=== PATIENT | female | born 1975 | race American Indian/Alaskan Native ===

== ENCOUNTER 2018-02-21 19:34 | Emergency (ER) | payer SELFPAY ==
[2018-02-21 22:48] VITALS: BP 155/97
[2018-02-22] MEDS ORDERED: TYLENOL #3 PO ONE (00:18)
--- NOTE | 2018-02-22 02:38 | Emergency Department Report ---
[place] [facility] Chief Complaint: Wound/Laceration Stated Complaint: LEFT HAND LACERATION Time Seen by Provider: 02/22/18 02:31 Occurred When: Today Location: Upper Extremity Severity: mild Tetanus Status: Up to Date Laceration Symptoms: Yes Pain, No Foreign Body Sensation, No Numbness, No Weakness Other History: Patient is a 42 year female states she was using a knife when the knife accidentally caught her on left palm. Patient states incident happened 6:30 PM today patient states she is up-to-date on her vaccinations and denies any other problems. Patient states she flushed laceration with running water after incident bleeding stopped shortly after that ED Review of Systems ROS: Stated complaint: LEFT HAND LACERATION Other details as noted in HPI Constitutional: denies: chills, fever Eyes: denies: eye pain, eye discharge, vision change ENT: denies: ear pain, throat pain Respiratory: denies: cough, shortness of breath, wheezing Cardiovascular: denies: chest pain, palpitations Endocrine: no symptoms reported Gastrointestinal: denies: abdominal pain, nausea, diarrhea Genitourinary: denies: urgency, dysuria, discharge Musculoskeletal: denies: back pain, joint swelling, arthralgia Skin: denies: rash, lesions Neurological: denies: headache, weakness, paresthesias Psychiatric: denies: anxiety, depression Hematological/Lymphatic: denies: easy bleeding, easy bruising ED Past Medical Hx - Past Medical History Previous Medical History?: No - Social History Smoking Status: Current Every Day Smoker Substance Use Type: None - Medications Home Medications: Home Medications Medication Instructions Recorded Confirmed Last Taken Type Cephalexin [Keflex] 250 mg PO BID #6 capsule 02/22/18 Unknown Rx Ibuprofen [Motrin] 800 mg PO Q8HR PRN #30 tablet 02/22/18 Unknown Rx Laceration Physical Exam - Exam General: Vital signs noted. No distress. Alert and acting appropriately. Fingers are intact, patient able to wiggle fingers done and problems No bleeding observed. No loss of sensation , no neurovascular deficit Wound Length (cm): 1 Laceration Location: Upper Extremity (left medial palm) Laceration Exam: Yes Normal Distal CMS, No Foreign Body, No Exposed Tendon, Vessel, or Nerve, No Tendon Injury ED Course Vital Signs 02/21/18 22:45 Temperature 98.5 F Pulse Rate 62 Respiratory 18 Rate Blood Pressure 155/97 O2 Sat by Pulse 98 Oximetry ED Medical Decision Making - Medical Decision Making 42-year-old female presents with mild laceration to the left medial palm. Laceration was very superficial almost an abrasion did not need sutures. ED course: Patient received pain medication in the ED Wound was cleaned with Betadine and skin of face Dermabond applied to laceration Patient proceeded well. Vital signs are normal patient is not she describes Discuss acute wound care with patient. Discuss to follow up with primary care physician in 3-5 days. Critical care attestation.: If time is entered above; I have spent that time in minutes in the direct care of this critically ill patient, excluding procedure time. ED Disposition Clinical Impression: Hand abrasion, non-infected Laceration of palm Qualifiers: Encounter type: initial encounter Laterality: left Qualified Code(s): S61.412A - Laceration without foreign body of left hand, initial encounter Disposition: TO HOME OR SELFCARE Is pt being admited?: No Does the pt Need Aspirin: No Condition: Stable Instructions: Acute Wound Care (ED), Laceration (ED), Skin Adhesive Care (ED) Additional Instructions: Make sure to follow up with the primary care physician as discussed. Take all your medications as you've been prescribed. If you have any worsening symptoms or develop new symptoms please return to ED immediately. Prescriptions: Cephalexin [Keflex] 250 mg PO BID #6 capsule Ibuprofen [Motrin] 800 mg PO Q8HR PRN #30 tablet PRN Reason: Pain Referrals: LUPE FELDMAN MD [Primary Care Provider] - 3-5 Days SREE MAIN MD [Referring] - 3-5 Days [facility] [Outside] - 3-5 Days [facility] [Outside] - 3-5 Days Forms: Accompanied Note, Work/School Release Form(ED) Time of Disposition: 02:40
== END 2018-02-22 02:50 | disposition home or self-care (01) ==
LOC: ED 19:34
DX: S61.412A Laceration without foreign body of left hand, initial encounter (principal); F17.200 Nicotine dependence, unspecified, uncomplicated; W26.0XXA Contact with knife, initial encounter; Y93.89 Activity, other specified; Y92.89 Other specified places as the place of occurrence of the external cause; Y99.8 Other external cause status
CPT/HCPCS: 99282

== ENCOUNTER 2018-08-24 22:53 | Emergency (ER) | payer SELFPAY ==
[2018-08-25 00:59] VITALS: BP 151/99
[2018-08-25] MEDS ORDERED: NORCO 5/325 PO STA (02:30)
--- NOTE | 2018-08-25 02:55 | Emergency Department Report ---
ED Headache HPI - General Chief Complaint: Headache Stated Complaint: HEADACHE,CHILL AND BOIL Time Seen by Provider: 08/25/18 01:57 Source: patient - History of Present Illness Timing/Duration: 4-6 hours, waxing and waning Head Injury Location: frontal Recent Head Trauma: occasional headaches (with same charateristic ) Associated Symptoms: denies: confusion, fatigue, facial pain, fever/chills, flushing, loss of consciousness, nausea/vomiting, nasal congestion, nasal drainage, numbness in legs/feet, seizures, sinus infection, stiff neck, vision changes, weakness Allergies/Adverse Reactions: Allergies No Known Allergies Allergy (Unverified 02/21/18 22:48) Home Medications: Ambulatory Orders Cephalexin [Keflex] 250 mg PO BID #6 capsule 02/22/18 Ibuprofen [Motrin] 800 mg PO Q8HR PRN #30 tablet 02/22/18 Cephalexin [Keflex] 500 mg PO TID #30 capsule 08/25/18 Chlorhexidine Gluconate [Hibiclens] 10 ml TP BID #240 liquid 08/25/18 Ketorolac [Toradol] 10 mg PO Q6H PRN #15 tablet 08/25/18 Sulfamethoxazole/Trimethoprim [Bactrim Ds Tablet] 2 each PO BID #40 tablet 08/25 ED Review of Systems ROS: Stated complaint: HEADACHE,CHILL AND BOIL Other details as noted in HPI Constitutional: denies: chills, fever Eyes: denies: eye pain, eye discharge, vision change ENT: denies: ear pain, throat pain Respiratory: denies: cough, shortness of breath, wheezing Cardiovascular: denies: chest pain, palpitations Endocrine: no symptoms reported Gastrointestinal: denies: abdominal pain, nausea, diarrhea Genitourinary: denies: urgency, dysuria, discharge Musculoskeletal: denies: back pain, joint swelling, arthralgia Skin: denies: rash, lesions Neurological: headache. denies: weakness, paresthesias, abnormal gait, vertigo Psychiatric: denies: anxiety, depression Hematological/Lymphatic: denies: easy bleeding, easy bruising ED Past Medical Hx - Past Medical History Previous Medical History?: No - Surgical History Past Surgical History?: No - Social History Smoking Status: Never Smoker Substance Use Type: None - Medications Home Medications: Home Medications Medication Instructions Recorded Confirmed Last Taken Type Cephalexin [Keflex] 250 mg PO BID #6 capsule 02/22/18 Unknown Rx Ibuprofen [Motrin] 800 mg PO Q8HR PRN #30 tablet 02/22/18 Unknown Rx Cephalexin [Keflex] 500 mg PO TID #30 capsule 08/25/18 Unknown Rx Chlorhexidine Gluconate [Hibiclens] 10 ml TP BID #240 liquid 08/25/18 Unknown Rx Ketorolac [Toradol] 10 mg PO Q6H PRN #15 tablet 08/25/18 Unknown Rx Sulfamethoxazole/Trimethoprim 2 each PO BID #40 tablet 08/25/18 Unknown Rx [Bactrim Ds Tablet] ED Physical Exam - General Limitations: No Limitations General appearance: alert, in no apparent distress - Head Head exam: Present: atraumatic, normocephalic - Eye Eye exam: Present: normal appearance, PERRL, EOMI. Absent: nystagmus - ENT ENT exam: Present: normal orophraynx, mucous membranes moist - Neck Neck exam: Present: normal inspection, full ROM. Absent: lymphadenopathy - Respiratory Respiratory exam: Present: normal lung sounds bilaterally. Absent: respiratory distress - Cardiovascular Cardiovascular Exam: Present: regular rate, normal rhythm. Absent: systolic murmur, diastolic murmur, rubs, gallop - GI/Abdominal GI/Abdominal exam: Present: soft, normal bowel sounds - Extremities Exam Extremities exam: Present: normal inspection - Back Exam Back exam: Present: normal inspection, full ROM - Neurological Exam Neurological exam: Present: alert, oriented X3, CN II-XII intact - Psychiatric Psychiatric exam: Present: normal affect, normal mood - Skin Skin exam: Present: warm, dry, intact, normal color. Absent: rash - Expanded Skin Exam Expanded 1 - early forming pilonidal cyst like development. tender to touch. few fissures and xeroderma to crease. ED Course Vital Signs 08/25/18 00:54 Pulse Rate 94 H Respiratory 18 Rate Blood Pressure 151/99 [Right] O2 Sat by Pulse 99 Oximetry ED Medical Decision Making - Medical Decision Making Discussed treatment options regarding the possibly emergence of a pilonidal cyst. Offered incision and drainage. Patient wanted to wait and do the conservative approach for 1-2 days and have her reevaluated for possible incision and drainage if it had not already done so spontaneously. I educated patient on proper management and compliance with current medication regimen Differential diagnosis Cellulitis versus cyst, pilonidal, tension headache, migraine, cluster Critical care attestation.: If time is entered above; I have spent that time in minutes in the direct care of this critically ill patient, excluding procedure time. ED Disposition Clinical Impression: Gluteal abscess, Cephalgia Disposition: DC- TO HOME OR SELFCARE Is pt being admited?: No Does the pt Need Aspirin: No Condition: Stable Instructions: Acute Headache (ED), Abscess (ED) Prescriptions: Cephalexin [Keflex] 500 mg PO TID #30 capsule Chlorhexidine Gluconate [Hibiclens] 10 ml TP BID #240 liquid Ketorolac [Toradol] 10 mg PO Q6H PRN #15 tablet PRN Reason: Pain Sulfamethoxazole/Trimethoprim [Bactrim Ds Tablet] 2 each PO BID #40 tablet Referrals: [facility] [Provider Group] - 08/26/18 PRIMARY CARE, [Primary Care Provider] - 3-5 Days Abscess Boil HPI - HPI Chief Complaint: Headache Stated Complaint: HEADACHE,CHILL AND BOIL Time Seen by Provider: 08/25/18 01:57 Duration: 2 Days Location: Sacral/Pilonidal History: Yes Pain, No Fever, No Purulent Drainage, No Numbness, No Foreign Body , No Previous History, No Insect Bite Home Medications: Previous Rx's Medication Instructions Recorded Last Taken Type Cephalexin [Keflex] 250 mg PO BID #6 capsule 02/22/18 Unknown Rx Ibuprofen [Motrin] 800 mg PO Q8HR PRN #30 tablet 02/22/18 Unknown Rx Cephalexin [Keflex] 500 mg PO TID #30 capsule 08/25/18 Unknown Rx Chlorhexidine Gluconate [Hibiclens] 10 ml TP BID #240 liquid 08/25/18 Unknown Rx Ketorolac [Toradol] 10 mg PO Q6H PRN #15 tablet 08/25/18 Unknown Rx Sulfamethoxazole/Trimethoprim 2 each PO BID #40 tablet 08/25/18 Unknown Rx [Bactrim Ds Tablet] Allergies/Adverse Reactions: Allergies Allergy/AdvReac Type Severity Reaction Status Date / Time No Known Allergies Allergy Unverified 02/21/18 22:48
== END 2018-08-25 02:49 | disposition home or self-care (01) ==
LOC: EDBD → ED 22:53
DX: L02.31 Cutaneous abscess of buttock (principal); R51 Headache
CPT/HCPCS: 99282